=== PATIENT | female | born 1975 | race Caucasian/White ===

== ENCOUNTER → 2016-12-12 | Outpatient (CLI) | payer BC ==
--- NOTE | 2016-12-12 10:50 | US ---
Ultrasound Pelvis Complete (Transabdominal and Endovaginal) Including Duplex/Doppler Imaging History: N83.209, unspecified ovarian cyst, unspecified side - pelvic US for ovarian cyst. Technique: Transabdominal and endovaginal ultrasound images were obtained. Endovaginal images obtain ed for better evaluation of the uterine myometrium and adnexa. Duplex/Doppler imaging of adnexa. Findings: Uterus measures 9.3 x 4.3 x 5.7 cm. IUD appears in satisfactory position centrally within the endometrial canal. Endometrial thickness is 5 mm. No definite uterine leiomyomata. Right ovary measures 7 x 3.6 x 6.1 cm. Left ovary measures 3.9 x 3.1 x 3.3 cm. Right ovarian simple c yst measuring 6.1 x 5.8 x 3.2 cm. Left ovarian complex cyst measuring 3.2 x 2.6 x 2 cm with two septa tions probably representing a cluster of cysts. No mural nodule noted. Small amount of free fluid in the pelvis. Color Doppler flow to both ovaries without torsion. Impression: 1. Right ovarian simple cyst measuring 6.1 x 5.8 x 3.2 cm. 2. Left ovarian complex cyst with simple septations measuring 3.2 x 2.6 x 2 cm possibly representing a cluster of cysts. 3. Small amount of free fluid in the pelvis. 4. No ovarian torsion. 5. Recommend follow-up ultrasound in 6-12 weeks to ensure resolution of the cysts.
== END ==
LOC: FIMAGING 09:04
PROVIDERS: ATTEND Obstetrics & Gynecology
DX: N83.201 Unspecified ovarian cyst, right side (principal); N83.202 Unspecified ovarian cyst, left side